=== PATIENT | female | born 1940 | race Native Hawaiian/Other Pacific Islander ===

== ENCOUNTER 2018-10-04 09:17 | Outpatient (CLI) | payer MEDICARE | END 2018-10-04 09:18 | disposition home or self-care (01) | LOC: C.LAB 09:17 | DX: E11.9 Type 2 diabetes mellitus without complications (principal) ==

== ENCOUNTER 2019-01-03 09:26 | Outpatient (CLI) | payer MEDICARE | END 2019-01-03 09:27 | disposition home or self-care (01) | LOC: C.LAB 09:26 | DX: E11.9 Type 2 diabetes mellitus without complications (principal) ==